=== PATIENT | male | born 1985 | race Caucasian/White ===

== ENCOUNTER 2022-09-09 12:04 | Emergency (ER) | payer OTHER ==
[~2022-09-09] VITALS: Ht 172.7 cm; Wt 76.2 kg
[2022-09-09] MEDS ORDERED: PROTONIX40 M1 PO (12:47)
[2022-09-09] MEDS ORDERED: MOMETASONE FURO15 G2 TOP (15:14)
[2022-09-09] MEDS ORDERED: ANTIFUNGAL113 GM TOP (15:14)
[2022-09-09] MEDS ORDERED: DUI500 PO (15:22)
== END 2022-09-09 15:29 | disposition home or self-care (01) ==
LOC: ER 12:04
DX: R21 Rash and other nonspecific skin eruption (principal)